=== PATIENT | female | born 1990 | race Caucasian/White ===

== ENCOUNTER 2024-02-07 12:03 | Emergency (ER) | payer SELFPAY ==
[~2024-02-07] VITALS: Ht 170.2 cm; Wt 80.0 kg
[~2024-02-07 12:03] MED LIST: PROTONIX40 M2 PO; SOTALOL AF80 MG PO; XANAX1 MG PO; ZOFRAN4 MG/TAB PO
[2024-02-07 12:36] VITALS: BP 124/87
[2024-02-07] MEDS ORDERED: LACTATED RINGER'S 1,000 ML IV STA (12:38)
[2024-02-07] MEDS ORDERED: PROMETHAZINE HCL 25 MG/ML AMP IV ONE (12:40)
[2024-02-07 12:54] LABS: URINE BILIRUBIN - DIPSTICK Negative (NEGATIVE); URINE BLOOD DIPSTICK Moderate (NEGATIVE); URINE GLUCOSE - DIPSTICK Negative (NEGATIVE); URINE KETONE Negative (NEGATIVE); URINE NITRITE - DIPSTICK Negative (Negative); URINE PH 5.5 (4.5-8.0); URINE PROTEIN - DIPSTICK Negative (NEG-TRACE); URINE UROBILINOGEN - DIPSTICK 0.2 E.U./dL (0.2)
[2024-02-07 12:55] LABS: BASO% 0.6 % (0-3); EOS% 2.8 % (0-8); HEMATOCRIT 35.7 % (37.0-47.0); HEMOGLOBIN 11.5 g/dl (12.0-16.0); LYMPH% 48.6 % (15-41); MEAN CELL VOLUME 88.1 fL CALC (80.0-100.0); MEAN CORPUSCULAR HGB 28.4 pG CALC (26.0-32.0); MEAN CORPUSCULAR HGB CONC 32.2 g/dL CAL (32.0-36.0); MONO% 9.4 % (2-13); NEUT# 2.66 thou/uL (2.00-7.15); NEUT% 38.6 % (42-76); RED BLOOD COUNT 4.05 mill/uL (4.20-5.60); RED CELL DISTRI WIDTH 13.7 % (11.5-15.5)
[2024-02-07 12:57] VITALS: BP 124/87
[2024-02-07 13:00] LABS: URINE COLOR Yellow; URINE LEUK ESTERASE Small (NEGATIVE)
[2024-02-07 13:13] LABS: ALBUMIN 4.7 g/dL (3.2-5.0); BILIRUBIN, TOTAL 0.3 mg/dL (0.02-1.3); CREATININE 0.7 mg/dL (0.5-1.0); POTASSIUM 3.8 mmol/l (3.5-5.1); TOTAL PROTEIN 7.9 g/dL (6.3-8.2)
[2024-02-07 13:21] LABS: URINE SQUAMOUS EPITHELIAL CELL MODERATE EPI/hpf (0-FEW)
[2024-02-07 13:22] LABS: URINE YEAST FEW hpf
== END 2024-02-07 13:57 | disposition left against medical advice (07) | DRG 392 ==
LOC: ED 12:03
PROVIDERS: Family Medicine
DX: R10.9 Unspecified abdominal pain (principal); Z53.29 Procedure and treatment not carried out because of patient's decision for other reasons; Z76.5 Malingerer [conscious simulation]
CPT/HCPCS: J2470; J2550